=== PATIENT | female | born 1995 | race Caucasian/White ===

== ENCOUNTER 2022-01-30 12:03 | Emergency (ER) | payer BC ==
[~2022-01-30] VITALS: Ht 165.1 cm; Wt 68.5 kg
[2022-01-30 12:05] VITALS: BP 109/59
== END 2022-01-30 14:58 | disposition home or self-care (01) ==
LOC: M ED 12:03
DX: M79.662 Pain in left lower leg (principal); Z88.0 Allergy status to penicillin